=== PATIENT | female | born 1950 | race African-American/Black ===

== ENCOUNTER 2020-01-09 16:29 | Emergency (ER) | payer OTHER ==
--- NOTE | 2020-01-09 16:49 | PDOC ---
Rapid Medical Evaluation Chief Complaint: Palpitations Medical Evaluation: Allergies Allergy/AdvReac Type Severity Reaction Status Date / Time No Known Allergies Allergy Verified 09/02/15 23:53 I have performed a brief in-person evaluation of this patient. The patient presents with a chief complaint of: c/o palpitations and R arm tingling since last week after carrying some packages down 3 flights of stairs; denies fever, URI sxs, sob, cp, abd pain, n/v Pertinent physical exam findings: In NAD I have ordered the following: Labs, EKG The patient will proceed to the ED for further evaluation. 01/09/20 16:49
[2020-01-09 16:52] VITALS: BP 129/73; PULSE 72; TEMP 98.4; BMI 33.4
[2020-01-09 19:24] LABS: BASO % 0.9 % (0-2.0); EOS % 1.6 % (0-4.5); HEMOGLOBIN 13.1 GM/dL (10.7-15.3); LYMPH % 24.6 % (8-40); MCH 29.7 pg (25.7-33.7); MCHC 32.8 g/dl (32.0-36.0); MEAN CELL VOLUME 90.5 fl (80-96); MONO % 6.6 % (3.8-10.2); NEUT % 66.3 % (42.8-82.8); PLATELET COUNT 187 K/MM3 (134-434); RBC 4.43 M/mm3 (3.60-5.2); RDW 14.8 % (11.6-15.6); WHITE BLOOD COUNT 9.1 K/mm3 (4.0-10.0)
[2020-01-09 20:17] LABS: ALBUMIN 3.5 g/dl (3.4-5.0); BILIRUBIN,TOTAL 0.4 mg/dL (0.2-1); CALCIUM 9.3 mg/dL (8.5-10.1); CREATININE 0.9 mg/dL (0.55-1.3); POTASSIUM 4.5 mmol/L (3.5-5.1); TOT PROT 7.5 g/dl (6.4-8.2)
--- NOTE | 2020-01-09 20:22 | PDOC ---
Documentation entered by Corrine Cardensa SCRIBE, acting as scribe for Carley Lombardo MD. Carley Lombardo MD: This documentation has been prepared by the alfonzoibe, Corrine Cardenas SCRIBE, under my direction and personally reviewed by me in its entirety. I confirm that the documentation accurately reflects all work, treatment, procedures, and medical decision making performed by me. Attending Attestation - Resident Resident Name: ChitraEvangelist - ED Attending Attestation I have performed the following: I have examined & evaluated the patient, The case was reviewed & discussed with the resident, I agree w/resident's findings & plan, Exceptions are as noted - HPI HPI: 01/09/20 20:21 69-year-old female who is been experiencing 1 week of pressure-like chest pain presents to the emergency department. This chest pain has no radiation and is not associated with nausea vomiting or any shortness of breath. No recent travel No recent surgeries - Physicial Exam PE: 01/09/20 22:43 wnwd 69 yo female with 7 days of chest pressure head ncat neck supple lungs cta b/l cvs [id number] abd nontender skin warm and dry neuro axox3,ambulatory - Medical Decision Making 01/09/20 20:22 69-year-old female with only a past medical history of glaucoma has had 1 week of intermittent chest like pressure, nonradiating not associated with any shortness of breath or nausea Plan to troponins, chest x-ray EKG is normal sinus rhythm 64 bpm with criteria for LVH we will repeat because there is some sawtooth-like appearance to the EKG We will repeat to rule out a flutter 01/09/20 22:01 EKG done at 2139 shows normal sinus rhythm at 63 bpm, voltage criteria for LVH, QTC 440 ms 01/09/20 22:41 Plan repeat second troponin if negative will discharge home
--- NOTE | 2020-01-09 20:23 | PDOC ---
History of Present Illness - General Chief Complaint: Palpitations Stated Complaint: PALPITATIONS Time Seen by Provider: 01/09/20 16:48 History Source: Patient Exam Limitations: No Limitations - History of Present Illness Initial Comments: 69 yo F with a hx of glaucoma and nuclear myocardial scan showing mild non extensive apical ischemia with 61% LVEF in 2013 presents to the emergency department upon referral from her PMD for evaluation of chest discomfort. Per the patient, her symptoms had onset 1 week ago while she was carrying heavy boxes. The location of the chest discomfort was bilateral chest wall without radiation and without worsening with exertion. It terminates after approximately 2-3 minutes spontaneously. Per the patient, some of these episodes occur with exertion and some spontaneously. Denies having concurrent symptoms during these episodes including headache, lightheadedness, SOB, nausea , neck pain, FND, and UE pain. The patient's bird trapper is Dr. Binh Connelly. Denies the following: fevers, chills, SOB, chest pain, dysuria, hematuria, diarrhea, leg pain/swelling, and back pain. Allergies: NKDA Past History - Past Medical History Allergies/Adverse Reactions: Allergies Allergy/AdvReac Type Severity Reaction Status Date / Time No Known Allergies Allergy Verified 01/09/20 16:51 Home Medications: Ambulatory Orders No Home Medications 0 dose .ROUTE UTDICT 05/22/12 COPD: No - Surgical History Abdominal Surgery: Yes (ectopic , hysterectomy) Orthopedic Surgery: Yes (knee surgery) - Immunization History Immunization Up to Date: Yes - Psycho Social/Smoking Cessation Hx Smoking Status: No Smoking History: Never smoked Number of Cigarettes Smoked Daily: 0 Hx Alcohol Use: No Drug/Substance Use Hx: No Substance Use Type: None Review of Systems - Review of Systems Able to Perform ROS?: Yes Is the patient limited [place] proficient: No Constitutional: No: Chills, Diaphoresis, Fever, Weakness HEENTM: No: Eye Pain, Ear Pain, Nose Pain, Throat Pain, Mouth Pain Cardiac (ROS): Yes: Chest Pain, Palpitations, Chest Tightness. No: Lightheadedness ABD/GI: No: Constipated, Diarrhea, Nausea, Rectal Bleeding, Vomiting, Tarry Stools : No: Burning, Dysuria, Hematuria, Incontinence Musculoskeletal: No: Back Pain, Joint Pain, Neck Pain Integumentary: No: Bruising, Erythema, Rash Neurological: No: Headache, Numbness, Tingling, Tremors Psychiatric: No: Change in Appetite Endocrine: No: Unexplained Weight Loss Hematologic/Lymphatic: No: Anemia *Physical Exam - Vital Signs Last Vital Signs Temp Pulse Resp BP Pulse Ox 98.4 F 72 16 129/73 97 01/09/20 16:47 01/09/20 16:47 01/09/20 16:47 01/09/20 16:47 01/09/20 16:47 - Physical Exam General Appearance: Yes: Nourished, Appropriately Dressed. No: Apparent Distress, Intoxicated HEENT: positive: EOMI, DIANE, Normal Voice, Symmetrical, Pharynx Normal, Hearing Grossly Normal. negative: Pale Conjunctivae, Scleral Icterus (R), Scleral Icterus (L), Muffled/Hoarse voice, Pharyngeal Erythema, Tonsillar Exudate, Tonsillar Erythema, Nasal Congestion, Rhinorrhea, Sinus Tenderness, Excessive drooling Neck: positive: Trachea midline, Supple. negative: Tender, Lymphadenopathy (R) , Lymphadenopathy (L), Tender lateral, Tender midline Respiratory/Chest: positive: Lungs Clear, Normal Breath Sounds. negative: Chest Tender, Respiratory Distress, Accessory Muscle Use, Crackles, Rales, Rhonchi, Stridor, Wheezing Cardiovascular: positive: Regular Rhythm, Regular Rate, S1, S2. negative: Systolic Murmur Gastrointestinal/Abdominal: positive: Normal Bowel Sounds, Flat, Soft. negative : Tender, Distended, Guarding, Rebound Lymphatic: negative: Adenopathy Musculoskeletal: positive: Normal Inspection. negative: CVA Tenderness, Vertebral Tenderness Extremity: positive: Normal Capillary Refill, Normal Inspection, Normal Range of Motion. negative: Tender, Swelling, Calf Tenderness Integumentary: positive: Normal Color, Dry, Warm Neurologic: positive: Fully Oriented, Alert, Normal Mood/Affect, Motor Strength 5/5 ED Treatment Course - LABORATORY CBC & Chemistry Diagram: 01/09/20 19:00 01/09/20 19:00 - ADDITIONAL ORDERS Additional order review: Laboratory Results 01/09/20 01/09/20 19:00 19:00 Sodium 141 Potassium 4.5 Chloride 106 Carbon Dioxide 28 Anion Gap 7 L BUN 15.0 Creatinine 0.9 Est GFR (CKD-EPI)AfAm 75.61 Est GFR (CKD-EPI)NonAf 65.24 Random Glucose 107 H Calcium 9.3 Total Bilirubin 0.4 AST 22 ALT 19 Alkaline Phosphatase 59 Troponin I < 0.02 Total Protein 7.5 Albumin 3.5 TSH 0.79 01/09/20 19:00 RBC 4.43 MCV 90.5 MCHC 32.8 RDW 14.8 MPV 9.0 Neutrophils % 66.3 Lymphocytes % 24.6 D Monocytes % 6.6 Eosinophils % 1.6 Basophils % 0.9 - RADIOLOGY Radiology Studies Ordered: Category Date Time Status CHEST X-RAY PORTABLE* [RAD] Stat Radiology 01/09/20 20:21 Ordered Medical Decision Making - Medical Decision Making 69 yo F with a hx of glaucoma and nuclear myocardial scan showing mild non extensive apical ischemia with 61% LVEF in 2013 presents to the emergency department upon referral from her PMD for evaluation of chest discomfort. Initial vitals: Initial Vital Signs Temp Pulse Resp BP Pulse Ox 98.4 F 72 16 129/73 97 01/09/20 16:47 01/09/20 16:47 01/09/20 16:47 01/09/20 16:47 01/09/20 16:47 Work up: patient presents to the emergency department with chest discomfort. rule out ACS. ddx: ACS vs PNA vs costochondritis vs pleuritis vs msk pain vs arrhythmia Laboratory Tests 01/09/20 01/09/20 01/09/20 19:00 19:00 19:00 WBC 9.1 RBC 4.43 Hgb 13.1 Hct 40.0 MCV 90.5 MCH 29.7 MCHC 32.8 RDW 14.8 Plt Count 187 MPV 9.0 Absolute Neuts (auto) 6.1 Neutrophils % 66.3 Lymphocytes % 24.6 D Monocytes % 6.6 Eosinophils % 1.6 Basophils % 0.9 Nucleated RBC % 0 Sodium 141 Potassium 4.5 Chloride 106 Carbon Dioxide 28 Anion Gap 7 L BUN 15.0 Creatinine 0.9 Est GFR (CKD-EPI)AfAm 75.61 Est GFR (CKD-EPI)NonAf 65.24 Random Glucose 107 H Calcium 9.3 Total Bilirubin 0.4 AST 22 ALT 19 Alkaline Phosphatase 59 Troponin I < 0.02 Total Protein 7.5 Albumin 3.5 TSH 0.79 01/09/20 20:26 WBC RBC Hgb Hct MCV MCH MCHC RDW Plt Count MPV Absolute Neuts (auto) Neutrophils % Lymphocytes % Monocytes % Eosinophils % Basophils % Nucleated RBC % Sodium Potassium Chloride Carbon Dioxide Anion Gap BUN Creatinine Est GFR (CKD-EPI)AfAm Est GFR (CKD-EPI)NonAf Random Glucose Calcium Total Bilirubin AST ALT Alkaline Phosphatase Troponin I < 0.02 Total Protein Albumin TSH troponin negative x2. EKG shows: Initial EKG shows sawtooth pattern likely artifact and not atrial flutter but will repeat EKG. No ST elevations or depression with a NSR at 64 bpm Repeat EKG shows rate of 63 bpm with p waves without sawtooth pattern with LVH qith QTC of 440 ms. Patient is pain free and will be discharged with PMD follow up. CXR within normal limits. Discharge - Discharge Information Problems reviewed: Yes Clinical Impression/Diagnosis: Chest pain Condition: Stable Disposition: HOME - Admission No - Follow up/Referral Referrals: Christie Mckeon [Primary Care Provider] - Brayan Mathew MD [Staff Physician] - - Patient Discharge Instructions Patient Printed Discharge Instructions: DI for Atypical Chest Pain, DI for Chest Pain Additional Instructions: You were seen in the emergency department for the evaluation of your chest pain. Your EKG was within normal limits and your chest xray was negative for acute process. Your blood work was within normal limits. Please follow up with your primary medical doctor within 1 week after discharge for follow up care and management. Please follow up with the bird trapper within 1 week after discharge for follow up care and management. Please return to the emergency department if you have worsening symptoms or new concerning symptoms. Thank you. - Post Discharge Activity
--- NOTE | 2020-01-10 09:41 | EKG ---
Test Reason : Blood Pressure : / mmHG Vent. Rate : 064 BPM Atrial Rate : 064 BPM P-R Int : 146 ms QRS Dur : 088 ms QT Int : 414 ms P-R-T Axes : 041 -21 019 degrees QTc Int : 427 ms NORMAL SINUS RHYTHM VOLTAGE CRITERIA FOR LEFT VENTRICULAR HYPERTROPHY ABNORMAL ECG WHEN COMPARED WITH ECG OF 21-JUL-2014 09:45, NO SIGNIFICANT CHANGE WAS FOUND Confirmed by Gonzalo Hicks MD ([id number]) on 01/10/2020 9:40:42 AM Referred By: Confirmed By:Gonzalo Hicks MD
== END 2020-01-10 00:30 | disposition home or self-care (01) ==
LOC: JER 16:29
DX: R07.9 Chest pain, unspecified (principal)
CPT/HCPCS: 36415; 71045-TC-FY; 80053; 84443; 84484; 85025; 93005; 93010; 99285-25